=== PATIENT | female | born 1940 | race African-American/Black ===

== ENCOUNTER 2023-05-26 12:48 | Emergency (ER) | payer OTHER ==
[~2023-05-26] VITALS: Ht 167.6 cm; Wt 100.0 kg
[2023-05-26 13:37] LABS: Basophils # (auto) 0.1 10 ^3/uL (0-0.2); Basophils % (auto) 0.9 % (0.0-2.0); Eosinophils # (auto) 0.1 10 ^3/uL (0-0.8); Eosinophils % (auto) 1.3 % (0.0-7.0); Hematocrit 40.4 % (36.0-46.0); Hemoglobin 13.8 g/dL (12.2-16.2); Lymphocytes # (auto) 1.8 10 ^3/uL (0.4-5.4); Lymphocytes % (auto) 28.7 % (10.0-50.0); Mean Corpuscular Hemoglobin 32.3 pg (28.0-32.0); Mean Corpuscular Hgb Conc. 34.2 g/dL (32.0-36.0); Mean Corpuscular Volume 94.3 fL (80.0-100.0); Monocytes # (auto) 0.6 10 ^3/uL (0-1.3); Monocytes % (auto) 9.9 % (0.0-12.0); Neutrophils # (auto) 3.7 10 ^3/uL (1.6-8.6); Neutrophils % (auto) 59.2 % (37.0-80.0); Nucleated Red Blood Cells % 0.1 %; Red Blood Cells 4.28 10^6/uL (4.0-5.20); Red Cell Distribution Width 13.9 % (11.8-14.3); White Blood Cell 6.3 10^3/uL (4.4-10.8)
[2023-05-26 13:42] LABS: Chloride 109 mmol/L (98-107); Potassium 4.1 mmol/L (3.5-5.1); Sodium 145 mmol/L (136-145)
[2023-05-26 13:43] LABS: Anion Gap 4 (5-15); Carbon Dioxide 32 mmol/L (20-30)
[2023-05-26 13:44] LABS: Calcium 9.6 mg/dL (8.5-10.1)
[2023-05-26 13:48] LABS: BUN/Creatinine Ratio 19.2 (10.0-20.0); Blood Urea Nitrogen 14 mg/dL (9-23); Glucose 93 mg/dL (74-106)
[2023-05-26 14:13] LABS: INR 1.04 (0.9-1.15); Partial Thromboplastin Time 27.8 SEC (24.5-34.5); Prothrombin Time 10.9 sec (9.3-11.8)
[2023-05-26 15:54] VITALS: BP 134/67; PULSE 65; RESP 18; TEMP 97.9; O2SAT 100
== END 2023-05-26 16:01 | disposition home or self-care (01) ==
LOC: EDBD 12:48 → ER 12:48 → EDUNIT# 12:48 → ER 15:55
DX: R07.89 Other chest pain (principal); I10 Essential (primary) hypertension; E78.5 Hyperlipidemia, unspecified; I25.10 Atherosclerotic heart disease of native coronary artery without angina pectoris; Z98.890 Other specified postprocedural states
CPT/HCPCS: 36415; 70450; 71045; 80048; 82962; 84484; 85025; 85610; 85730; 93005

== ENCOUNTER 2023-08-10 14:10 | Emergency (ER) | payer OTHER, MEDICAID ==
[~2023-08-10] VITALS: Ht 157.5 cm; Wt 193.6 kg
[2023-08-10 14:49] VITALS: BP 124/69; PULSE 70; RESP 17; TEMP 97; O2SAT 96
[2023-08-10] MEDS ORDERED: AMOX875T3 PO (16:18)
== END 2023-08-10 16:24 | disposition home or self-care (01) ==
LOC: ER 14:10 → EDBD 14:10 → ER 16:23
DX: H61.23 Impacted cerumen, bilateral (principal); H66.92 Otitis media, unspecified, left ear; I10 Essential (primary) hypertension; I25.10 Atherosclerotic heart disease of native coronary artery without angina pectoris; E78.5 Hyperlipidemia, unspecified; Z90.49 Acquired absence of other specified parts of digestive tract; Z90.710 Acquired absence of both cervix and uterus; Z79.2 Long term (current) use of antibiotics
CPT/HCPCS: 69209

== ENCOUNTER 2025-02-08 13:20 | Outpatient (CLI) | payer OTHER, MEDICAID ==
[~2025-02-08 13:20] MED LIST: AMLO1TAB22 PO; AMOX875T3 PO; APIX5TAB PO; EST0625T EXT; EZET10TA22 PO; LIDO5DIS21 TOP; METO-289 PO; NITR-52 PO; PRAV20TA3 PO
[2025-02-08 14:47] LABS: Blood Urea Nitrogen 6.0 mg/dL (9-23)
== END 2025-02-08 17:00 | disposition home or self-care (01) ==
LOC: LAB 13:20
PROVIDERS: ATTEND Internal Medicine Hematology & Oncology
DX: R39.82 Chronic bladder pain (principal); M79.601 Pain in right arm; Z95.5 Presence of coronary angioplasty implant and graft
CPT/HCPCS: 36415; 82565; 84520